=== PATIENT | female | born 1960 | race Caucasian/White ===

== ENCOUNTER 2017-05-07 14:30 | Inpatient (IN) ==
[2017-05-07 16:58] LABS: Appearance,Urine CLEAR; Bacteria,Urine 0 /hpf (0); Bilirubin,Urine NEG (NEG); Color,Urine YELLOW; Glucose,Urine (UA) NEGATIVE (NEG); Leukocyte Esterase,Urine 250 /uL (NEG); Nitrate,Urine NEG (NEG); Protein,Urine NEG (NEG); Specific Gravity,Urine 1.009 (1.000-1.035); Urine Blood NEG mg/dL (<0.03); Urine RBC < 1 /hpf (0-1); Urine Squamous Epithelial Cell < 1 /hpf (0-4); Urine WBC 8 /hpf (0-4); Urobilinogen,Urine NEG (NEG)
[2017-05-07 17:17] LABS: Blood Urea Nitrogen 11 mg/dl (6-20)
[2017-05-07 17:27] LABS: Basophils # (Auto) 0 K/mcL (0.0-0.3); Basophils % (Auto) 0.6 % (0.0-2.0); Eosinophils # (Auto) 0.2 K/mcL (0.0-0.7); Eosinophils % (Auto) 4.8 % (0.0-7.0); Granulocytes % (Auto) 62.8 % (38.0-78.0); Lymphocytes # (Auto) 1.1 K/mcL (1.5-4.8); Lymphocytes % (Auto) 23.9 % (15.5-49.0); Mean Cell Volume 90.3 fL (80.0-100.0); Mean Corpuscular HGB Conc 33.8 g/dL (31.0-36.0); Mean Corpuscular Hemoglobin 30.5 pg (26.0-34.0); Monocytes # (Auto) 0.4 K/mcL (0.1-0.9); Monocytes % (Auto) 7.9 % (1.0-12.0); Platelet Count 329 K/mcL (140-440); RBC 4.64 M/mcL (4.00-5.20); Red Cell Distribution Width 12.8 % (11.5-14.5)
[2017-05-13] MEDS ORDERED: ceFAZolin 1 GM VIAL IV SCH (05:00)
[2017-05-13] MEDS ORDERED: oxyCODONE 10 MG TAB.ER.12H PO SCH (05:00)
[2017-05-13] MEDS ORDERED: PREGABALIN 75 MG CAPSULE PO SCH (05:00)
[2017-05-13] MEDS ORDERED: KETOROLAC 30 MG, ROPIVACAINE HCL/PF 49.5 ML, EPINEPHrine 0.5 MG, 0.9 % SODIUM CHLORIDE ... IJ SCH (06:30)
[2017-05-13] MEDS ORDERED: 0.9 % SODIUM CHLORIDE 250 ML IV SCH (08:30)
[2017-05-13] MEDS ORDERED: ROPIVACAINE HCL/PF 30 ML VIAL IJ ONE (13:55)
[2017-05-13] MEDS ORDERED: PROPOFOL 200 MG/20 ML VIAL IV ONE (13:55)
[2017-05-13] MEDS ORDERED: GLYCOPYRROLATE 0.2 MG/ML VIAL IV ONE (13:55)
[2017-05-13] MEDS ORDERED: MIDAZOLAM 2 MG/2 ML VIAL IV ONE (13:55)
[2017-05-13] MEDS ORDERED: TRANEXAMIC ACID 1,000 MG/10 ML VIAL IV ONE ×2 (13:55→16:20)
[2017-05-13] MEDS ORDERED: ONDANSETRON 4 MG/2 ML VIAL IV ONE (13:55)
[2017-05-13] MEDS ORDERED: DEXAMETHASONE 10 MG/ML VIAL IV ONE (13:55)
[2017-05-13] MEDS ORDERED: LIDOCAINE HCL/PF 100 MG/5 ML SYRINGE IV ONE (13:55)
[2017-05-13] MEDS ORDERED: METOCLOPRAMIDE 10 MG/2 ML VIAL IV PRN (15:30)
[2017-05-13] MEDS ORDERED: fentaNYL 100 MCG/2 ML VIAL IV PRN (15:30)
[2017-05-13] MEDS ORDERED: LACTATED RINGERS 250 ML IV PRN (15:30)
[2017-05-13] MEDS ORDERED: MEPERIDINE 25 MG/ML SYRINGE IV PRN (15:30)
[2017-05-13] MEDS ORDERED: HYDROmorphone 2 MG/ML SYRINGE IV PRN ×2 (15:30→16:20)
[2017-05-13] MEDS ORDERED: LACTATED RINGERS 1,000 ML IV SCH (15:30)
[2017-05-13] MEDS ORDERED: MEPERIDINE 50 MG/ML SYRINGE IM PRN (15:30)
[2017-05-13] MEDS ORDERED: METHOCARBAMOL 1,000 MG/10 ML VIAL IV PRN (15:30)
[2017-05-13] MEDS ORDERED: BENZOCAINE/MENTHOL 1 LOZENGE PO PRN ×2 (15:30→16:20)
[2017-05-13] MEDS ORDERED: IPRATROPIUM/ALBUTEROL 3 ML AMPUL.NEB NEB PRN (15:30)
[2017-05-13] MEDS ORDERED: ePHEDrine 50 MG/ML AMPUL IV PRN (15:30)
[2017-05-13] MEDS ORDERED: ONDANSETRON 4 MG/2 ML VIAL IV PRN ×2 (15:30→16:20)
[2017-05-13] MEDS ORDERED: NALOXONE HCL 0.4 MG/ML VIAL IV PRN (15:30)
[2017-05-13] MEDS ORDERED: FLUMAZENIL 0.1 MG/ML ML IV PRN (15:30)
[2017-05-13] MEDS ORDERED: diphenhydrAMINE 50 MG/ML VIAL IV PRN (15:30)
--- NOTE | 2017-05-13 16:18 | Brief Operative Note ---
Date of procedure: 05/13/17 Pre-op diagnosis: Left knee severe osteoarthritis Post-op diagnosis: same Procedure: Left robotic assisted total knee arthroplasty Grafts/Implants: Yes (Porsha Triathlon PS 5 femur, 5 tibia, 11mm PS insert, 33 patella ) Anesthesia: spinal, GLMA Findings: severe valgus deformity with elongated MCL Complications: none Surgeon: Yon Minaya Concierge Receptionist: Johnny Posey Estimated blood loss (cc): 30 Specimens Removed/Pathology: none sent Condition: stable Disposition: PACU
[2017-05-13] MEDS ORDERED: FLEETS ADULT ENEMA PR PRN (16:20)
[2017-05-13] MEDS ORDERED: POLYETHYLENE GLYCOL 3350 17 GM PACKET PO PRN (16:20)
[2017-05-13] MEDS ORDERED: oxyCODONE/APAP 5/325MG TABLET PO PRN (16:20)
[2017-05-13] MEDS ORDERED: BISACODYL 10 MG SUPP.RECT PR PRN (16:20)
[2017-05-13] MEDS ORDERED: MAGNESIUM HYDROXIDE 30 ML ORAL.SUSP PO PRN (16:20)
[2017-05-13] MEDS: 0.9 % SODIUM CHLORIDE 1,000 ML IV SCH (17:05)
[2017-05-13] MEDS: KETOROLAC 30 MG/ML VIAL IV SCH (17:55)
--- NOTE | 2017-05-13 18:06 | XRay Report ---
CLINICAL INFORMATION: Postsurgical follow-up TECHNIQUE: Portable AP, lateral, patellar views COMPARISON: None. FINDINGS: Status post left total knee arthroplasty. Femoral and tibial complements are in anatomic positions. There is intra-articular postsurgical gas. There is soft tissue gas. IMPRESSION: Status post left total knee arthroplasty Interpreted and Authenticated by: Sen Salinas 05/13/17
[2017-05-13] MEDS ORDERED: SENNOSIDES 1 TABLET PO SCH (21:00)
[2017-05-13] MEDS: DOCUSATE SODIUM 100 MG CAPSULE PO SCH (21:15)
[2017-05-13] MEDS: ASPIRIN 325 MG ENTERIC COATED TABLET PO SCH (21:15)
[2017-05-13] MEDS: ceFAZolin 1 GM VIAL IV SCH (21:21)
[2017-05-13] MEDS: 0.9 % SODIUM CHLORIDE 10 ML SYRINGE IV SCH (21:21)
[2017-05-14] MEDS: KETOROLAC 30 MG/ML VIAL IV SCH ×3 (00:15→12:54)
[2017-05-14] MEDS: 0.9 % SODIUM CHLORIDE 1,000 ML IV SCH ×2 (03:49→12:57)
[2017-05-14] MEDS: 0.9 % SODIUM CHLORIDE 10 ML SYRINGE IV SCH (05:57)
[2017-05-14] MEDS: ceFAZolin 1 GM VIAL IV SCH (05:58)
--- NOTE | 2017-05-14 07:48 | Discharge Summary ---
Providers - Providers Patient information: Note initiated : 05/14/17 at 7:45 am Service Date, if different from initiated Date: [] Patient: Mehreen Fleming 57 y/o F admitted on 05/13/17 for Left Total Knee Arthroplasty with [employer] Robot. Chief Complaint: mild pain Discharge date: 05/14/17 Hospitalization Hospital course: Pt was admitted on day of procedure for a R total knee arthroplasty. Pt spent 1 nights on the floor for IV pain meds, IV abx, and PT. Pt was discharged to home with appropriate pain medication and ASA for DVT prophylaxis. Pt will follow-up at [facility] in 2 weeks. Discharge diagnosis: L knee osteoarthrosis Exam - Exam Clean and dry: Yes Weight bearing status: as tolerated Ortho Discharge - TKA - Patient Instructions Diet: Regular Diet Activity: activity as tolerated Total Knee Protocol: For Total Knee: Start ROM ELIZA with stationary bike or rocking chair. Work on gaining full extension of knee. Posterior dislocation precautions provided. Hip abductor strengthening and gait training instructions provided. Apply Cryocuff as instructed. Dressing Care: May shower in 2 days - Follow Up Plan Disposition: Home, Self-Care Prognosis: Good Rehab Potential: Good Overall status at discharge: patient is progressing back to baseline - Orders For Discharge Additional Discharge Orders: Physical Therapy at Discharge - General Location: Determined By Patient Walker Location: Determined By Patient Pending Studies Resuscitation Status Full Code Diet Regular Diet Start ThuMay 13 Breakfast Aspirin (Ecotrin) 325 mg PO BID [facility] Last Admin: 05/13/17 21:15 Dose: 325 mg Docusate Sodium (Colace) 100 mg PO BID [facility] Last Admin: 05/13/17 21:15 Dose: 100 mg Sodium Chloride (Sodium Chloride 0.9%) 1,000 mls @ 100 mls/hr IV .Q10H [facility] Last Admin: 05/14/17 03:49 Dose: 100 mls/hr Infusion: 05/14/17 03:05 Dose: 100 mls/hr Admin: 05/13/17 17:05 Dose: 100 mls/hr Ketorolac Tromethamine (Toradol) 30 mg IV Q6 [facility] Stop: 05/15/17 12:01 Last Admin: 05/14/17 05:56 Dose: 30 mg Admin: 05/14/17 00:15 Dose: 30 mg Admin: 05/13/17 17:55 Dose: 30 mg Ondansetron HCl (Zofran) 4 mg IV Q4HP PRN PRN Reason: Nausea And Vomiting Last Admin: 05/13/17 17:51 Dose: 4 mg Senna (Senokot) 2 tab PO HS [facility] Last Admin: 05/13/17 21:15 Dose: 2 tab Sodium Chloride (Saline Flush) 10 ml IV Q8 [facility] Last Admin: 05/14/17 05:57 Dose: Not Given Admin: 05/13/17 21:21 Dose: Not Given Shift Summary 05/14/17 04:14 Shift Summary by Jovana Zarate Patient is A&Ox4. VSS. Up with FWW and SBA. Patient denies pain. Has received scheduled Toradol but no other pain medications. 18 gauge to LFA with NS at 100 ml/hr. Last void was 600ml and post bladder scan was 0ml. Initialized on 05/14/17 04:14 - END OF NOTE
[2017-05-14] MEDS: ASPIRIN 325 MG ENTERIC COATED TABLET PO SCH (08:44)
[2017-05-14] MEDS: DOCUSATE SODIUM 100 MG CAPSULE PO SCH (08:44)
== END 2017-05-14 13:55 | disposition home or self-care (01) | DRG 470 ==
LOC: MEDSUR 05-13 08:34
PROVIDERS: ADMIT Orthopaedic Surgery; ATTEND Orthopaedic Surgery